=== PATIENT | female | born 1985 | race Caucasian/White ===

== ENCOUNTER 2024-04-09 18:34 | Emergency (ER) | payer SELFPAY ==
[~2024-04-09] VITALS: Ht 175.3 cm; Wt 82.6 kg
[~2024-04-09 18:34] MED LIST: CARI350T PO
[2024-04-09] MEDS ORDERED: predniSONE 20 MG TABLET ONE (19:31)
[2024-04-09] MEDS: predniSONE 20 MG TABLET PO ONE (19:35)
[2024-04-09] MEDS ORDERED: PRED50TA PO (20:04)
[2024-04-09] MEDS ORDERED: AZIT250T PO (20:04)
[2024-04-09] MEDS ORDERED: ALBU8.5H8 INH (20:04)
[2024-04-09 21:07] VITALS: BP 135/93; TEMP 98.3; O2SAT 99
== END 2024-04-09 21:08 | disposition home or self-care (01) ==
LOC: ER 18:48
DX: J40 Bronchitis, not specified as acute or chronic (principal); Z20.822 Contact with and (suspected) exposure to COVID-19
CPT/HCPCS: 99285; 71045; 87426; 93005; J7512